=== PATIENT | male | born 1970 | race Caucasian/White ===

== ENCOUNTER 2021-05-02 21:19 | Emergency (ER) | payer OTHER, SELFPAY ==
[2021-05-02] VITALS (12 sets, daily range): BP systolic 133–166; BP diastolic 76–97; PULSE 83–109; RESP 11–30; TEMP 36.3; O2SAT 91–100
--- NOTE | ~2021-05-02 | CT_ITS ---
EXAMINATION: CT brain wo con DATE: 05/03/2021 01:02 INDICATION: Dizziness TECHNIQUE: Computed tomography (CT) of the head was performed without intravenous contrast. The mA wa s adjusted according to patient size. Iterative reconstruction technique was employed. Exam dose: 60 5.33 mGy-cm total exam DLP. COMPARISON: None FINDINGS: No intracranial mass lesion or hemorrhage or cerebrovascular accident, midline shift or mas s effect is evident. Normal ventricular size. No subdural or epidural hematoma. There is a 2.2 cm polyp or mucous retention cyst of the right maxillary sinus. The included paranasal sinuses and mastoid air cells are otherwise unremarkable. No fracture or bone destruction of the cranial vault. IMPRESSION: No significant intracranial abnormality 2.2 cm polyp or mucous retention cyst right maxillary sinus Reviewed, dictated and finalized at [facility]. Reviewed, dictated and finalized at [facility].
--- NOTE | ~2021-05-02 | XR_ITS ---
EXAMINATION: XR chest 2V EXAM DATE: 05/02/2021 22:14 INDICATION: Midsternal chest pain. TECHNIQUE: Frontal and lateral projections of the chest obtained and reviewed. There is no prior chad dy for comparison. FINDINGS: The lungs are clear. There are no pleural effusions. The cardiomediastinal silhouette is within normal limits. There is no pneumothorax suspected. The bones and soft tissues are unremarkab le. IMPRESSION: No acute cardiopulmonary findings. Reviewed, dictated and finalized at [facility].
--- NOTE | 2021-05-02 21:55 | ECG_ITS ---
Measurements Intervals [place] Rate: 102 P: 66 MS: 131 QRS: 65 QRSD: 99 T: 29 QT: 313 QTc: 408 Interpretive Statements SINUS TACHYCARDIA BORDERLINE R WAVE PROGRESSION, ANTERIOR LEADS NONSPECIFIC T-WAVE ABNORMALITY- INFERIOR LEADS BASELINE WANDER- II, III, AVL, AVF ABNORMAL ECG Electronically Signed On 05-03-2021 6:40:45 CDT by Isacc Joya D.O.
[2021-05-02 22:20] LABS: Anion Gap 9 mmol/L (8-16); Blood Urea Nitrogen 17 mg/dL (9-20); Calcium 9.4 mg/dL (8.4-10.2); Carbon Dioxide 26 mmol/L (22-30); Chloride 107 mmol/L (98-107); Estimated CRCL calculation 109 ml/min; Estimated Glomerular Filt Rate > 60; Glucose 114 mg/dL (65-110); Potassium 3.8 mmol/L (3.4-5.0); Sodium 142 mmol/L (137-145)
[2021-05-02 22:23] LABS: INR 0.9; Partial Thromboplastin Time 22.8 SECONDS (22.3-36.8); Prothrombin Time 11.9 Seconds (11.1-14.7)
[2021-05-02 22:30] LABS: Basophils Absolute Auto 0.1 K/mm3 (0.0-0.1); Basophils Percent Auto 0.6 % (0.2-1.2); Eosinophils Absolute Auto 0.2 K/mm3 (0-0.3); Eosinophils Percent Auto 1.8 % (0-4.4); Hematocrit 46.3 % (42.0-52.0); Hemoglobin 15.6 g/dL (14.0-18.0); Immature Granulocyte Absolute 0.07 K/mm3 (0.00-0.031); Immature Granulocyte Percent A 0.6 % (0-0.5); Lymphocytes Percent Auto 16.9 % (18.3-44.2); Mean Corpuscular HGB Conc 33.7 g/dl (32-36); Mean Corpuscular Hemoglobin 28.1 pg (26-34); Mean Corpuscular Volume 83.3 fl (80-100); Mean Platelet Volume 9.9 fl (7.4-10.4); Monocytes Absolute Auto 1.2 K/mm3 (0.1-0.6); Monocytes Percent Auto 9.6 % (2.6-8.5); Neutrophils Absolute Auto 8.8 K/mm3 (1.3-6.7); Neutrophils Percent Auto 70.5 % (45.5-73.1); Platelet Count Result 394 k/mm3 (150-375); Red Blood Count 5.56 M/mm3 (4.6-6.20); Red Cell Distribution Width 12.4 % (11.5-14.5); White Blood Count 12.4 K/mm3 (4.5-10.0)
[2021-05-02 22:32] LABS: Troponin I < 0.012 ng/mL (0.000-0.034)
[2021-05-02] MEDS: ASPIRIN 81 MG CHEWABLE TABLET 324 MG PO (22:54)
--- NOTE | 2021-05-02 23:00 | ED.GENADULT ---
HPI - General Adult General Chief complaint: Chest Pain <Eri Plascencia MD - Last Filed: 05/03/21 13:16> Stated complaint: dizzy, high blood pressure <Eri Plascencia MD - Last Filed: 05/03/21 13:16> Time Seen by Provider: 05/02/21 22:49 <Eri Plascencia MD - Last Filed: 05/03/21 13:16> Source: patient <Eri Plascencia MD - Last Filed: 05/03/21 13:16> History of Present Illness HPI narrative: Patient is a 50 y/o male complaining of chest pain starting about 3 hours ago. He describes his chest pain as a pressure. He rates his pain as 4/10. There is no pain radiation, no alleviating or exacerbating factor. He noticed his heart rate was in 120s. He also has some SOB and dizziness. He describes his dizziness as a light-headed sensation. He does not feel room spinning. <Eri Plascencia MD - Last Filed: 05/03/21 13:16> Related Data Allergies/adverse reactions: Allergies Allergy/AdvReac Type Severity Reaction Status Date / Time corn AdvReac Other Verified 05/02/21 22:53 egg yolk AdvReac Other Verified 05/02/21 22:53 <Eri Plascencia MD - Last Filed: 05/03/21 13:16> Review of Systems Constitutional: Constitutional: Denies chills, Denies fever(s), Denies headache(s) and Denies weakness <Eri Plascencia MD - Last Filed: 05/03/21 13:16> Eyes: Eyes: Denies blurry vision <Eri Plascencia MD - Last Filed: 05/03/21 13:16> ENT: Denies headache(s) and Denies neck pain <Eri Plascencia MD - Last Filed: 05/03/21 13:16> Cardiovascular: Cardiovascular: Reports chest pain, Reports rapid heart rate and Reports dyspnea <Eri Plascencia MD - Last Filed: 05/03/21 13:16> Respiratory: Respiratory: Denies cough and Reports dyspnea <Eri Plascencia MD - Last Filed: 05/03/21 13:16> Gastrointestinal: Gastrointestinal: Denies abdominal pain, Denies diarrhea, Denies nausea and Denies vomiting <Eri Plascencia MD - Last Filed: 05/03/21 13:16> Genitourinary: Genitourinary: Denies hematuria and Denies dysuria <Eri Plascencia MD - Last Filed: 05/03/21 13:16> Musculoskeletal: Musculoskeletal: Denies back pain and Denies neck pain <Eri Plascencia MD - Last Filed: 05/03/21 13:16> Neurologic: Reports dizziness, Denies headache(s) and Denies weakness <Eri Plascecnia MD - Last Filed: 05/03/21 13:16> Exam Const: General: no acute distress and well developed <Eri Plascencia MD - Last Filed: 05/03/21 13:16> Orientation/consciousness: oriented to person, oriented to place, oriented to time and patient oriented x3 <Eri Plascencia MD - Last Filed: 05/03/21 13:16> HENMT: Head: normocephalic <Eri Plascencia MD - Last Filed: 05/03/21 13:16> Ears: external ears normal <Eri Plascencia MD - Last Filed: 05/03/21 13:16> General nose exam: Normal external nose present <Eri Plascencia MD - Last Filed: 05/03/21 13:16> Eyes: General: appearance normal, both eyes and all related structures <Eri Plascencia MD - Last Filed: 05/03/21 13:16> Conjunctivae: conjunctivae normal <Eri Plascencia MD - Last Filed: 05/03/21 13:16> Neck: Neck: normal visual inspection and full ROM <Eri Plascencia MD - Last Filed: 05/03/21 13:16> Chest: Chest palpation & inspection: normal inspection of the chest and no tenderness <Eri Plascencia MD - Last Filed: 05/03/21 13:16> Resp: Effort & Inspection: normal respiratory effort <Eri Plascencia MD - Last Filed: 05/03/21 13:16> Auscultation: clear to auscultation bilaterally <Eri Plascencia MD - Last Filed: 05/03/21 13:16> Cardio: Rate: regular rate <Eri Plascencia MD - Last Filed: 05/03/21 13:16> Rhythm: regular rhythm <Eri Plascencia MD - Last Filed: 05/03/21 13:16> GI: GI Palp: No abdominal tenderness and Yes Soft to palpation <Eri Plascencia MD - Last Filed: 05/03/21 13:16> Skin: General skin exam: normal color and turgor normal <Eri Plascencia MD - Last Filed: 05/03/21 13:16> Neuro: General: oriented to person, oriented to place, oriented to time and patient oriented x3 <Eri Plascencia
[2021-05-02 23:22] LABS: D Dimer 0.31 ug/mL (<0.48)
[2021-05-03] VITALS: BP 131/78; PULSE 82; RESP 17; O2SAT 95
[2021-05-03 00:01] VITALS: PULSE 82; RESP 13; O2SAT 98
[2021-05-03 00:15] VITALS: BP 135/78; PULSE 81; RESP 15; O2SAT 93
[2021-05-03 00:16] VITALS: PULSE 83; O2SAT 98
[2021-05-03 01:52] LABS: Troponin I < 0.012 ng/mL (0.000-0.034)
[2021-05-03 02:36] VITALS: BP 132/78; PULSE 72; RESP 18; O2SAT 99
== END 2021-05-03 02:40 | disposition home or self-care (01) ==
PROVIDERS: Emergency Medicine; Emergency Provider Emergency Medicine; PCP Family Medicine
DX: R07.89 Other chest pain (principal); R42 Dizziness and giddiness
CPT/HCPCS: 36415; 70450; 71046; 80048; 84484; 85025; 85380; 85610; 85730; 93005; 99284; A9270